=== PATIENT | male | born 1995 | race Caucasian/White ===

== ENCOUNTER 2017-01-26 13:00 | Emergency (ER) | payer BC, MEDICAID, OTHER ==
[2017-01-26 14:21] VITALS: BP 118/63
--- NOTE | 2017-01-26 14:26 | CT ---
Clinical history: 21-year-old male who sustained head and neck injury (bull riding) with associated 5 minutes loss of consciousness and severe occipital headache. Scan technique: Volume acquisition of data emergency unenhanced CT scan of the cervical spine and hea d obtained with patient lying supine on the Siemens multi slice scanner [place], [place]. All data archived in the PACS system for storage, reformatting axial/sagittal/cor onal planes and study (bone/soft tissue windows). Interpretation: Abnormal. 1. *Mild prevertebral soft tissue swelling upper cervical spine AND cortical break ("step") anteriorl y with subtle irregular lucent line across the body of the C2 vertebral body at the base of the odont oid process i.e. suspicious nondisplaced fracture." Close clinical correlation, stabilization, and fo llow-up elective MRI exam of the cervical spine suggested. 2. Normal density, height and alignment of the 7 cervical/first 2 thoracic vertebra without evidence other fracture or dislocation. 3. Uniformly thick bony calvarium without sign of skull fracture, underlying or contrecoup brain cont usion, and no epidural/subdural hematoma. No sign of acute intracerebral/intraventricular/subarachnoi d bleed. 4. Symmetric cook-white matter pattern. No supratentorial or posterior fossa mass lesion. No ischemic infarcts. 5. Faint physiologic midline pineal and symmetric choroid plexus calcifications. Cerebellum and brain stem unremarkable. 6. Symmetric clear pneumatization normal appearing mastoid and paranasal sinuses.
--- NOTE | 2017-01-26 14:31 | CT ---
Clinical history: 21-year-old male 5 minute loss of consciousness and severe occipital headache assoc iated with bull riding trauma. Suspicious appearance odontoid process (suggest nondisplaced fracture C2) on CT scan cervical spine. Scan technique: Volume acquisition of data emergency unenhanced CT scan of the head and brain obtaine d with patient lying supine on the Siemens multi slice scanner [facility]. All data archived in the PACS system for storage and study (bone/brain windows). Interpretation: Negative plain film exam of the skull and brain. No sign of skull fracture, underlying brain contusion or epidural/subdural hematoma. No sign of acute intracerebral/intraventricular/subarachnoid bleed. No hydrocephalus. No ischemic inf arcts. Mastoid and paranasal sinuses are clear.
--- NOTE | 2017-01-26 15:03 | EDM.PDOC ---
Scribed by Lyly Shankar 01/26/17 1448 for Adán Mcbride MD ED HPI GENERAL MEDICAL PROBLEM - General Chief Complaint: Head Injury Stated Complaint: [id number] GOT KNOCKED OUT AT [facility] Time Seen by Provider: 01/26/17 13:21 Source of Information: Reports: Patient, RN, RN Notes Reviewed History Limitations: Reports: No Limitations - History of Present Illness INITIAL COMMENTS - FREE TEXT/NARRATIVE: Arrives from work by POV with complaint of headache and nausea after being "hooked" by a bull and thrown to the ground landing on the back striking the back of his head. Patient reports witness told him and video confirms he was unconscious for 5 minutes and had his neck flexed forward. Reports occipital headache, nausea, vomiting and neck pain. Patient vomited a few times yesterday and once today. Today he states he has been falling asleep repeatedly. Admits to brief blurred vision just after the injury but not today. Location: Reports: Head Quality: Reports: Ache Severity: Severe Improves with: Reports: None Worsens with: Reports: None Associated Symptoms: Reports: No Other Symptoms Neck Pain Score (Numeric/FACES): 10 - Related Data Allergies Allergy/AdvReac Type Severity Reaction Status Date / Time No Known Allergies Allergy Verified 01/26/17 13:07 Home Meds: Home Meds . [No Known Home Meds] 08/21/16 [History] Past Medical History HEENT History: Reports: Impaired Vision, Other (See Below) (concussion x5.) Other HEENT History: Astigmatism of the right eye, occasionally wears glasses Cardiovascular History: Reports: Other (See Below) Other Cardiovascular History: he is unaware of his cholesterol status Respiratory History: Reports: Intubation, Previous Gastrointestinal History: Reports: GERD Genitourinary History: Reports: None Musculoskeletal History: Reports: Fracture, Other (See Below) Other Musculoskeletal History: right midshaft fracture secondary to bone riding on 09/20/11, right rib fx in 2012 Neurological History: Reports: Concussion (x5), Head Trauma, Other (See Below) Other Neuro History: Head concussion in about 2010 Psychiatric History: Reports: Addiction, Anxiety, Depression, Psych Hospitalization(s), Suicidal Ideation, Other (See Below) Other Psychiatric History: History of suicidal ideation and brief hospitalization at [facility] in [place] secondary to side effects from antidepressant medication on 07/23/10, chronic marijuana use which the patient uses as an antidepressant Endocrine/Metabolic History: Reports: None Hematologic History: Reports: None Immunologic History: Reports: None Oncologic (Cancer) History: Reports: None Dermatologic History: Reports: None - Infectious Disease History Infectious Disease History: Reports: Mononucleosis - Past Surgical History HEENT Surgical History: Reports: Oral Surgery, Other (See Below) GI Surgical History: Reports: Appendectomy, EGD, Other (See Below) Male Surgical History: Reports: Circumcision, Other (See Below) Musculoskeletal Surgical History: Reports: Other (See Below) - Past Imaging History Past Imaging History: Reports: CAT Scan, HIDA Scan, MRI, Ultrasound Social & Family History - Family History Cardiac: Reports: Arrhythmia, CAD, CA, Other (See Below) Other Cardiac Family History: Maternal grandfather with fatal CA at age 59, anesthesia reaction with secondary bradycardia in brother as below Respiratory: Reports: Asthma, Other (See Below) Other Respiratory Family Hisory: Brother with childhood asthma Psychiatric: Reports: Anxiety, Depression, Psych Hospitalization(s), Other (See Below) Other Psychiatric Family History: Father with anxiety depression disorder including previous suicidal attempts and voluntary psychiatric hospitalizations , paternal aunt with anxiety depression disorder with mostly anxiety component, brother with anxiety depression disorder Endocrine/Metabolic: Reports: Other (See Below) Other Endocrine/Metabolic Family History: Brother with anesthesia reaction severe bradycardia during surgery at age 2 - Tobacco Use Smoking Status *Q: Never Smoker Years of Tobacco use: 5 (Started chewing tobacco at age 11) Packs/Tins Daily: 0.1 (One can every 2 days previously) Used Tobacco, but Quit: No Second Hand Smoke Exposure: No - Caffeine Use Caffeine Use: Reports: Coffee, Soda - Alcohol Use Days Per Week of Alcohol Use: 0 Number of Drinks Per Day: 3 (Usually beer for holidays) Total Drinks Per Week: 0 - Recreational Drug Use Recreational Drug Use: Yes Drug Use in Last 12 Months: No Recreational Drug Type: Reports: Marijuana/Hashish Recreational Drug Use Frequency: Daily - Living Situation & Occupation Living situation: Reports: Single, Other Occupation: Employed ED ROS GENERAL - Review of Systems Review Of Systems: ROS reveals no pertinent complaints other than HPI. ED EXAM, HEAD INJURY - Physical Exam Exam: See Below Exam Limited By: No Limitations General Appearance: Alert, WD/WN, No Apparent Distress Head: Atraumatic, Normocephalic Eyes: Bilateral Eye: Normal Inspection Ears: Normal External Exam, Normal Canal, Hearing Grossly Normal, Normal TMs Nose: Normal Inspection, Normal Mucousa, No Blood Throat/Mouth: Normal Inspection, Normal Lips, Normal Teeth, Normal Gums, Normal Oropharynx, Normal Voice, No Airway Compromise Neck: Other (C-spine imaged by CT scan (see rad report). Maintained in C-spine collar.) Respiratory: No Respiratory Distress, Lungs Clear, Normal Breath Sounds, No Accessory Muscle Use, Chest Non-Tender Cardiovascular: Normal Peripheral Pulses, Regular Rate, Rhythm, No Edema, No Gallop, No JVD, No Murmur, No Rub GI/Abdominal Exam: Normal Bowel Sounds, Soft, Non-Tender, No Organomegaly, No Distention, No Abnormal Bruit, No Mass (Male) Exam: Deferred Rectal (Males) Exam: Deferred Back Exam: Full Range of Motion, Normal Inspection, NT Extremities: Normal Inspection, Normal Range of Motion, Non-Tender, No Pedal Edema, Normal Capillary Refill Neurologic: windshield technician II-XII nml As Tested, No Motor/Sensory Deficits, Alert, Normal Mood/Affect, Oriented x 3, Other (lateral gaze nustagmus.) Skin: Normal Color, Warm/Dry - Marci Coma Score Best Eye Response ([place]): (4) Open Spontaneously Best Verbal Response ([place]): (5) Oriented Best Motor Response ([place]): (6) Obeys Commands [place] Total: 15 (on arrival, and at 30 minutes repeat and at discharge. ) Course - Vital Signs Last Recorded V/S: Last Vital Signs Temp 36.6 C 01/26/17 14:20 Pulse 59 L 01/26/17 14:20 Resp 18 01/26/17 14:20 BP 118/63 01/26/17 14:20 Pulse Ox 97 01/26/17 14:20 - Orders/Labs/Meds Orders: Active Orders 24 hr Category Date Time Status DRUG SCREEN URINE BIORAD [URCHEM] Stat Lab 01/26/17 13:49 Uncollected UA W/MICROSCOPIC [URIN] Stat Lab 01/26/17 13:49 Uncollected - Radiology Interpretation Free Text/Narrative:: CT head: No sign of skull fracture, underlying brain contusion or epidural/ subdural hematoma. No sign of acute intracerebral/intraventricular/subarachnoid bleed. No hydrocephalus or ischemic infarct. See rad report. CT C-spine: Mild prevertebral soft tissue swelling upper cervical spine AND cortical break ("step") anteriorly with subtle irregular lucent line across the body of C2 vertebral body at the base of the odonotoid process, i.e., suspicious nondisplaced fracture. See rad report. - Re-Assessments/Exams Free Text/Narrative Re-Assessment/Exam: 01/26/17 14:10 Pt converted to trauma chart upon CT C-spine report from radiologist. Departure - Departure Time of Disposition: 14:42 Disposition: DC/Tfer to Acute Hospital 02 Condition: Serious Clinical Impression: Concussion with loss of consciousness of 30 minutes or less, initial encounter Closed C2 fracture Qualifiers: Encounter type: initial encounter Fracture morphology: unspecified fracture morphology Fracture alignment: nondisplaced Qualified Code(s): S12.101A - Unspecified nondisplaced fracture of second cervical vertebra, initial encounter for closed fracture Odontoid fracture Qualifiers: Encounter type: initial encounter Fracture type: closed Qualified Code(s): S12.100A - Unspecified displaced fracture of second cervical vertebra, initial encounter for closed fracture - Discharge Information Forms: ED Department Discharge, Interfacility Transfer EMTALA - My Orders Last 24 Hours: My Active Orders 01/26/17 13:49 DRUG SCREEN URINE BIORAD [URCHEM] Stat UA W/MICROSCOPIC [URIN] Stat - Assessment/Plan Last 24 Hours: My Active Orders 01/26/17 13:49 DRUG SCREEN URINE BIORAD [URCHEM] Stat UA W/MICROSCOPIC [URIN] Stat I have read and agree with the documentation that has been completed regarding this visit. By signing this record, I attest that the documentation was completed in my physical presence and is an accurate record of the encounter.
[2017-01-26] MEDS ORDERED: HYDROmorphone 1 MG/ML Syringe IVPUSH ONE (15:10)
[2017-01-26] MEDS ORDERED: Ondansetron 4 MG/2 ML SDV IV ONE (15:10)
[2017-01-26] MEDS ORDERED: Sodium Chloride 0.9% 10 ML Syringe FLUSH PRN (15:11)
== END 2017-01-26 16:05 ==
LOC: DL.ED 13:00
DX: S06.0X1A Concussion with loss of consciousness of 30 minutes or less, initial encounter (principal); S12.101A Unspecified nondisplaced fracture of second cervical vertebra, initial encounter for closed fracture; S12.100A Unspecified displaced fracture of second cervical vertebra, initial encounter for closed fracture; K21.9 Gastro-esophageal reflux disease without esophagitis; F32.9 Major depressive disorder, single episode, unspecified; F17.290 Nicotine dependence, other tobacco product, uncomplicated; Z90.49 Acquired absence of other specified parts of digestive tract; Z98.890 Other specified postprocedural states; W55.29XA Other contact with cow, initial encounter
CPT/HCPCS: 70450; 72125; 96374; 96375; 99285; J1170; J2405; J7050; 99284